=== PATIENT | female | born 1990 | race Native Hawaiian/Other Pacific Islander ===

== ENCOUNTER 2022-06-10 16:43 | Emergency (ER) | payer OTHER ==
[~2022-06-10] VITALS: Ht 167.6 cm; Wt 113.4 kg
[2022-06-10 16:49] VITALS: BP 142/76; TEMP 98.2
== END 2022-06-10 17:32 | disposition home or self-care (01) ==
LOC: ED 16:43
DX: H65.191 Other acute nonsuppurative otitis media, right ear (principal); J06.9 Acute upper respiratory infection, unspecified
CPT/HCPCS: 96372; 99282; J0696

== ENCOUNTER 2022-07-15 15:25 | Emergency (ER) | payer OTHER ==
[~2022-07-15] VITALS: Ht 167.6 cm; Wt 118.8 kg
[2022-07-15 15:50] VITALS: BP 118/69; TEMP 98.4
== END 2022-07-15 18:31 | disposition home or self-care (01) ==
LOC: ED 15:25
DX: K11.20 Sialoadenitis, unspecified (principal); R68.84 Jaw pain
CPT/HCPCS: 87651; 99282